=== PATIENT | male | born 1955 | race Caucasian/White ===

== ENCOUNTER → 2018-08-24 | Day surgery (SDC) | payer OTHER ==
[2018-08-23 13:40] VITALS: BMI 30.9
[~2018-08-24] MED LIST: BUPIVACAINE HCL 0.25% 125 MG/50 ML VIAL ONE; EPINEPHrine 1:1,000 1 MG/1 ML - 30ML VIAL (INJECTION) ONE; KETOROLAC TROMETHAMINE 30 MG/1 ML VIAL ONE; LACTATED RINGERS SOLUTION 1,000 ML IV SCH; LIDOCAINE HCL/PF 2% SDV 5ML VIAL ONE; MIDAZOLAM HCL 2 MG/2 ML SINGLE DOSE VIAL ONE; ONDANSETRON 4 MG/2 ML VIAL IVPUSH PRN; ONDANSETRON 4 MG/2 ML VIAL ONE; PROPOFOL 20 ML ONE; ceFAZolin SODIUM 1 GM VIAL ONE; oxyCODONE HCL 5 MG TABLET PO PRN
[2018-08-24 16:29] VITALS: TEMP 98.2
[2018-08-24 16:43] VITALS: BP 124/74; PULSE 75
--- NOTE | 2018-08-25 08:51 | OP ---
DATE OF OPERATION: 08/24/2018 PREOPERATIVE DIAGNOSIS: Right knee medial meniscal tear. POSTOPERATIVE DIAGNOSIS: Right knee medial meniscal tear. PROCEDURE: Right knee arthroscopy with partial medial meniscectomy. SURGEON: Nigel Maynard MD ANESTHESIA: Spinal. POSTOPERATIVE CONDITION: Stable. COMPLICATIONS: None. INDICATIONS: This is a pleasant 62-year-old gentleman who is suffering from medial knee pain. MRI demonstrated medial meniscal tear. Treatment options including nonoperative versus operative management were reviewed. Operative risks were reviewed in detail including bleeding, infection, neurovascular injury, need for further surgery, postoperative pain or stiffness, progression of osteoarthritis. We discussed medical risks such as heart attack, stroke, DVT, PE, and . I addressed all the patients questions and concerns. He voiced understanding and elected to proceed. DESCRIPTION OF PROCEDURE: The patient was brought to the operating room where spinal anesthesia was administered. The patient was then placed supine on the operating room table. The right lower extremity was then prepped and draped in the usual sterile fashion. A preoperative dose of antibiotics was given, and the usual time-out procedure was performed. The portal sites were then marked out and then injected subcutaneously with 0.25% Marcaine. The lateral portal was now established with the No. 11 blade. The arthroscope was passed into the knee. Examination of the patellofemoral joint demonstrated moderate partial thickness chondral loss on the patellar and trochlear surfaces. Passing the arthroscope into the notch demonstrated intact ACL and PCL. The arthroscope was now passed into the medial compartment. Here, a medial portal was established under spinal needle localization. The compartment was examined demonstrating moderate thickness chondral loss along the femoral and tibial surfaces. There was a complex tear along the body and posterior horn of the medial meniscus. Utilizing meniscal biters and a shaver, this was debrided down to a stable base. The arthroscope was passed into the lateral compartment. Here, there was only mild superficial cartilage fraying on the articular surface. Meniscus was unremarkable. It was probed and found to be stable. The arthroscope was now passed back into the patellofemoral joint. The knee was irrigated. The excess fluid was now withdrawn. The portals were sutured using 3-0 nylon. Sterile dressings were placed. The patient was transferred to the recovery room in stable condition. NIGEL MAYNARD M.D. [id number]
== END | disposition home or self-care (01) ==
LOC: FASU 08:08
PROVIDERS: ATTEND Orthopaedic Surgery Sports Medicine
PROC: 0SBC4ZZ Excision of Right Knee Joint, Percutaneous Endoscopic Approach (ICD-10-PCS; principal; 2018-08-24 11:29)
DX: S83.241A Other tear of medial meniscus, current injury, right knee, initial encounter (principal); X58.XXXA Exposure to other specified factors, initial encounter; Y93.9 Activity, unspecified; Y92.9 Unspecified place or not applicable
CPT/HCPCS: 82962

== ENCOUNTER 2018-10-31 19:32 | Inpatient (IN) | payer OTHER ==
--- NOTE | 2018-10-31 19:35 | PDOC ---
History of Present Illness - General History Source: Patient Exam Limitations: No Limitations - History of Present Illness Initial Comments: 10/31/18 20:35 The patient is a 63 year old male, with a significant PMH of diabetes, HTN, and HDL, who presents to the emergency department complaining of a left foot injury that occurred 2 days. The patient states he stepped on a tac 2 days ago that went through his sneaker and noticed some erythema and swelling at the left great toe. He reports swelling progressively worsened today, radiating to his leg accompanied with some numbness at the bottom of his foot which is normal for him. He states he is able to ambulate and bear weight on his right foot but came in for further evaluation because he is diabetic. The patient also mentions he did not take any of his medications today and tetanus shot is not up to date. The patient denies pus or discharge at the site of injury. Denies any chest pain, shortness of breath, headache and dizziness. Denies fever, chills, nausea, vomit, diarrhea and constipation. PAST MEDICAL HISTORY: no significant history PAST SURGICAL HISTORY: no significant history FAMILY HISTORY: no pertinent history SOCIAL HISTORY: Current everyday smoker (smokes 2 packs per day) but denies alcohol and recreational drug use. MEDICATIONS: reviewed ALLERGIES: Penicillin Adult ROS General: No fevers or chills, no weakness, no weight loss HEENT: No change in vision. No sore throat,. No ear pain CardioVascular: No chest pain or shortness of breath Respiratory:No cough, or wheezing. Gastrointestinal: no nausea, vomiting, diarrhea or constipation, No rectal bleeding Genitourinary: No dysuria, hematuria, or frequency Musculoskeletal: +Right foot swelling. Neurologic: No headache, vertigo, dizziness or loss of consciousness Psychiatric: nor depression Skin: No rashes or easy bruising Endocrine: no increased thirst or abnormal weight change Allergic: no skin or latex allergy All other systems reviewed and normal Adult Exam: General: Well-nourished well-developed individual, no acute distress HEENT: Throat: Normal, tonsils normal, no erythema or exudate Neck: Supple, no meningeal signs, no lymphadenopathy Eyes::Pupils equal reactive and round, extraocular motion intact Chest: Nontender to palpation Cardiac:+Tachycardic. No murmurs rubs or gallops Respiratory: Lungs clear to auscultation bilateral Abdomen: Soft, nondistended, normal bowel sounds, nontender to palpation diffusely Extremities: Warm, dry, no cyanosis, clubbing, or edema Skin: +Left foot plantar surface of the great toe there is a 1 cm superficial laceration with swelling and erythema of the great toe . Associated increase of warmth and redness of the plantar surface to the medial aspect dorsum of foot and medial aspect of the ankle and lower third of leg. Neuro: Alert and oriented x3, nonfocal exam, grossly intact. Psych: Normal mood and affect <Abeba Akhtar - Last Filed: 10/31/18 21:08> - General History Source: Patient Exam Limitations: No Limitations - History of Present Illness Initial Comments: 10/31/18 20:46 A portion of this note was documented by scribe services under my direction. I have reviewed the details of the note, within reason, and agree with the documentation with the following case summary and management plan written by me. Patient treated in the ED. Nursing notes are reviewed and incorporated into the medical decision-making. Vital signs reviewed. Assessment plan: This is a 63-year-old male who is an insulin-dependent diabetic who stepped on a foreign body that went through his shoe 2 days ago. Patient now has a cellulitis of his foot with extension to his ankle and up his leg. Patient will need admission for IV antibiotics. Workup initiated including CBC, comp, EKG, chest x-ray, foot x-ray Infectious disease consult regarding antibiotics and antibiotics were started. Patient said that his ALLERGY to penicillin his he thinks he may have had a rash as a child and is almost positive that he has had penicillins post dental work as a prophylaxis without difficulty. Is up on that history infectious disease recommended mended that he be given meropenem and clindamycin Patient will be admitted to the hospitalist service 10/31/18 21:40 <Girma Jain I - Last Filed: 10/31/18 21:41> - General Chief Complaint: Pain, Acute Stated Complaint: STEPPED ON TAC TUESDAY Time Seen by Provider: 10/31/18 19:33 Past History <Abeba Akhtar - Last Filed: 10/31/18 21:08> - Past Medical History Anemia: No Asthma: No Cancer: No Cardiac Disorders: No CVA: No COPD: No CHF: No Dementia: No Diabetes: Yes (x25 years) GI Disorders: No Disorders: No HTN: No Hypercholesterolemia: No Liver Disease: No Seizures: No Thyroid Disease: No - Surgical History Abdominal Surgery: No Appendectomy: No Cardiac Surgery: No Cholecystectomy: No Lung Surgery: No Neurologic Surgery: No Orthopedic Surgery: No - Suicide/Smoking/Psychosocial Hx Smoking History: Current every day smoker Have you smoked in the past 12 months: Yes Number of Cigarettes Smoked Daily: 40 'Breaking Loose' booklet given: 08/23/18 Hx Alcohol Use: No Drug/Substance Use Hx: No Substance Use Type: None Hx Substance Use Treatment: No <Girma Jain I - Last Filed: 10/31/18 21:41> - Past Medical History Allergies/Adverse Reactions: Allergies Allergy/AdvReac Type Severity Reaction Status Date / Time Penicillins Allergy Rash Verified 10/31/18 19:36 Home Medications: Ambulatory Orders Aspirin [Adult Aspirin Regimen] 81 mg PO DAILY 08/23/18 Insulin Glargine,Hum.rec.anlog [Lantus] 60 unit SQ BID 08/23/18 Lisinopril [Prinivil] 10 mg PO DAILY 08/23/18 Simvastatin [Zocor -] 40 mg PO DAILY 08/23/18 metFORMIN HCL [Metformin HCl ER] 1,000 mg PO BID 08/23/18 *Physical Exam - Vital Signs Last Vital Signs Temp Pulse Resp BP Pulse Ox 99 F 104 H 16 169/109 H 99 10/31/18 19:49 10/31/18 19:49 10/31/18 19:49 10/31/18 19:49 10/31/18 19:49 <Abeba Akhtar - Last Filed: 10/31/18 21:08> Moderate Sedation - Procedure Monitoring Vital Signs: Procedure Monitoring Vital Signs Temperature 99 F 10/31/18 19:49 Pulse Rate 104 H 10/31/18 19:49 Respiratory Rate 16 10/31/18 19:49 Blood Pressure 169/109 H 10/31/18 19:49 O2 Sat by Pulse Oximetry (%) 99 10/31/18 19:49 <Abeba Akhtar - Last Filed: 10/31/18 21:08> ED Treatment Course - LABORATORY CBC & Chemistry Diagram: 10/31/18 20:45 10/31/18 20:45 - ADDITIONAL ORDERS Additional order review: Laboratory Results 10/31/18 19:47 POC Glucometer 312 10/31/18 19:47 POC Glucometer 312 - Medications Given in the ED: ED Medications Discontinued Medications Generic Name Dose Route Start Last Admin Trade Name Catrachito PRN Reason Stop Dose Admin Diphtheria/Tetanus/Acell Pertussis 0.5 ml 10/31/18 19:49 10/31/18 19:58 Boostrix - IM 10/31/18 19:50 0.5 ml ONCE ONE Administration <Abeba Akhtar - Last Filed: 10/31/18 21:08> - LABORATORY CBC & Chemistry Diagram: 10/31/18 20:45 10/31/18 20:45 <Girma Jain I - Last Filed: 10/31/18 21:41> *DC/Admit/Observation/Transfer - Attestations Scribe Attestion: 10/31/18 20:42 Documentation prepared by Abeba Akhtar, acting as medical management specialist for Girma Jain MD. <Abeba Akhtar - Last Filed: 10/31/18 21:08> - Discharge Dispostion Decision to Admit order: Yes <Girma Jain I - Last Filed: 10/31/18 21:41> Diagnosis at time of Disposition: Cellulitis of foot, Hyperglycemia - Discharge Dispostion Condition at time of disposition: Stable
[2018-10-31] MEDS ORDERED: DIPHTH,PERTUSS(ACELL),TET 0.5 ML DISP.SYRIN IM ONE ×2 (19:49→19:55)
[2018-10-31] MEDS ORDERED: INSULIN REGULAR HUMAN 100 UNITS/ML *VIAL IVPUSH ONE (19:59)
[2018-10-31 20:04] VITALS: BMI 31.2
[2018-10-31] MEDS ORDERED: INSULIN REGULAR HUMAN 100 UNITS/ML *VIAL ONE (20:05)
[2018-10-31] MEDS ORDERED: AZTREONAM 2 GM in DEXTROSE 5%-WATER 100 ML IVPB ONE (20:14)
[2018-10-31] MEDS ORDERED: CLINDAMYCIN IVPB 300 MG in DEXTROSE 5%-WATER - 48 ML IVPB ONE (20:42)
[2018-10-31] MEDS ORDERED: MEROPENEM 1 GM in DEXTROSE 5%-WATER 100 ML IVPB ONE (20:44)
[2018-10-31] MEDS ORDERED: CLINDAMYCIN PHOSPHATE 300 MG/2 ML VIAL ONE (20:53)
[2018-10-31 20:59] LABS: PH,URINE 6.5 (4.5-8); URINE APPEARANCE Clear; URINE BILIRUBIN Negative (NEGATIVE); URINE COLOR Yellow; URINE GLUCOSE (UA) 2+ (NEGATIVE); URINE KETONE Trace (NEGATIVE); URINE LEUK ESTERASE Negative (NEGATIVE); URINE NITRITE Negative (NEGATIVE); URINE PROTEIN 2+ (NEGATIVE); URINE UROBILINOGEN 0.2 (0.2-1.0)
[2018-10-31 21:02] LABS: MCH 29.3 pg (25.7-33.7); MCHC 32.6 g/dl (32.0-35.9); MEAN CELL VOLUME 89.7 fl (80-96); MEAN PLT VOLUME 8.6 fl (7.5-11.1); PLATELET COUNT 168 K/MM3 (134-434); RDW 12.4 % (11.9-15.9); WHITE BLOOD COUNT 13.8 K/mm3 (4.0-10.8)
[2018-10-31 21:16] LABS: ALBUMIN 3.9 g/dl (3.4-5.0); ALK PHOS 93 U/L (45-117); ANION GAP 7 MMOL/L (8-16); BILIRUBIN,TOTAL 0.8 mg/dl (0.2-1); BLOOD UREA NITROGEN 22 mg/dl (7-18); CALCIUM 8.7 mg/dl (8.5-10); CHLORIDE 94 mmol/L (98-107); CO2 26 mmol/L (21-32); CREATININE 1.2 mg/dl (0.55-1.3); POTASSIUM 4.5 mmol/L (3.5-5.1); SGOT/AST 23 U/L (15-37); SGPT/ALT 20 U/L (13-61); SODIUM 127 mmol/L (136-145); TOT PROT 6.4 g/dl (6.4-8.2)
[2018-10-31 21:17] LABS: GLUCOSE,RANDOM 315 mg/dl (74-106)
[2018-10-31 21:20] LABS: INR 1.32 (0.82-1.09); PROTHROMBIN TIME (PATIENT) 14.7 SEC (10.2-13.0)
[2018-10-31 21:36] LABS: EPI CELLS 1+ /HPF; URINE WBC 0-2 (0-2)
[2018-10-31 21:37] LABS: URINE BACTERIA 1+ /hpf (NEGATIVE)
--- NOTE | 2018-10-31 21:58 | HP ---
CHIEF COMPLAINT: left foot pain PCP: HISTORY OF PRESENT ILLNESS: 63yo man, long time smoker and 25year diabetic reported stepping on nail this past Tuesday with penetration of nail into left toe through his sneaker. Pt did not feel it at first and later felt pain, erythema, and swelling in left foot so sought medical advice. He denied any significant fever or chills. ER course was notable for: (1) meropenem (2) clindamycin (3) left foot xray Recent Travel: Traveled to [place] 1 year ago PAST MEDICAL HISTORY: DM -25 years, HTN, Dyslipidemia PAST SURGICAL HISTORY: Right knee meniscus surgery 8 weeks ago Social History: Smoking:yes past, 40 years, current 2 pack /day smoker Alcohol:no Drugs: no Family History: no Allergies Penicillins Allergy (Verified 10/31/18 19:36) Rash HOME MEDICATIONS: Home Medications Medication Instructions Recorded Aspirin [Adult Aspirin Regimen] 81 mg PO DAILY 08/23/18 Insulin Glargine,Hum.rec.anlog 60 unit SQ BID 08/23/18 [Lantus] Lisinopril [Prinivil] 10 mg PO DAILY 08/23/18 Simvastatin [Zocor -] 40 mg PO DAILY 08/23/18 metFORMIN HCL [Metformin HCl ER] 1,000 mg PO BID 08/23/18 REVIEW OF SYSTEMS CONSTITUTIONAL: Absent: fever, chills, diaphoresis, generalized weakness, malaise, loss of appetite, weight change HEENT: Absent: rhinorrhea, nasal congestion, throat pain, throat swelling, difficulty swallowing, mouth swelling, ear pain, eye pain, visual changes CARDIOVASCULAR: Absent: chest pain, syncope, palpitations, irregular heart rate, lightheadedness , peripheral edema RESPIRATORY: Absent: cough, shortness of breath, dyspnea with exertion, orthopnea, wheezing, stridor, hemoptysis GASTROINTESTINAL: Absent: abdominal pain, abdominal distension, nausea, vomiting, diarrhea, constipation, melena, hematochezia GENITOURINARY: Absent: dysuria, , urgency, hesitancy, hematuria, flank pain, genital pain present- frequency MUSCULOSKELETAL: Absent: myalgia, arthralgia, joint swelling, back pain, neck pain present- left foot pain SKIN: Absent: rash, itching, pallor HEMATOLOGIC/IMMUNOLOGIC: Absent: easy bleeding, easy bruising, lymphadenopathy, frequent infections ENDOCRINE: Absent: unexplained weight gain, unexplained weight loss, heat intolerance, cold intolerance NEUROLOGIC: Absent: headache, focal weakness or paresthesias, dizziness, unsteady gait, seizure, mental status changes, bladder or bowel incontinence PSYCHIATRIC: Absent: anxiety, depression, suicidal or homicidal ideation, hallucinations. PHYSICAL EXAMINATION Vital Signs - 24 hr 10/31/18 10/31/18 19:49 21:47 Temperature 99 F 97.8 F Pulse Rate 104 H Pulse Rate [ 100 H Left] Respiratory 16 18 Rate Blood Pressure 169/109 H Blood Pressure 128/82 [Right] O2 Sat by Pulse 99 95 Oximetry (%) GENERAL: Awake, alert, and fully oriented, in no acute distress. HEAD: Normal with no signs of trauma. EYES: Pupils equal, round and reactive to light, extraocular movements intact, sclera anicteric, conjunctiva clear. No lid lag. EARS, NOSE, THROAT: Ears normal, nares patent, oropharynx clear without exudates. Moist mucous membranes. NECK: Normal range of motion, supple without lymphadenopathy, JVD, or masses. LUNGS: Breath sounds equal, clear to auscultation bilaterally. No wheezes, and no crackles. No accessory muscle use. HEART: Regular rate and rhythm, normal S1 and S2 without murmur, rub or gallop. ABDOMEN: Soft, obese, nontender, not distended, normoactive bowel sounds, no guarding, no rebound, no masses. MUSCULOSKELETAL: Normal range of motion at all joints. No bony deformities or tenderness. No CVA tenderness. UPPER EXTREMITIES: 2+ pulses, warm, well-perfused. No cyanosis. No clubbing. No peripheral edema. LOWER EXTREMITIES: 2+ pulses, warm, well-perfused. left great toe small ulcer, surrounding erythema up to ankle, more so medially, tender to palpation NEUROLOGICAL: Cranial nerves II-XII intact. Normal speech. Normal gait. PSYCHIATRIC: Cooperative. Good eye contact. Appropriate mood and affect. SKIN: Warm, dry, normal turgor, no rashes or lesions noted, normal capillary refill. Laboratory Results - last 24 hr 10/31/18 10/31/18 10/31/18 19:47 20:45 20:45 WBC 13.8 H RBC 4.80 Hgb 14.0 Hct 43.0 MCV 89.7 MCH 29.3 MCHC 32.6 RDW 12.4 Plt Count 168 MPV 8.6 Absolute Neuts (auto) 11.2 Neutrophils % No Result Required. Lymphocytes % No Result Required. PT with INR 14.7 H INR 1.32 H Sodium Potassium Chloride Carbon Dioxide Anion Gap BUN Creatinine Creat Clearance w eGFR POC Glucometer 312 Random Glucose Calcium Total Bilirubin AST ALT Alkaline Phosphatase Creatine Kinase Creatine Kinase Index CK-MB (CK-2) Troponin I Total Protein Albumin Urine Color Urine Appearance Urine pH Ur Specific Pryor Urine Protein Urine Glucose (UA) Urine Ketones Urine Blood Urine Nitrite Urine Bilirubin Urine Urobilinogen Ur Leukocyte Esterase Urine RBC Urine WBC Ur Epithelial Cells Urine Bacteria 10/31/18 10/31/18 10/31/18 20:45 20:45 20:45 WBC RBC Hgb Hct MCV MCH MCHC RDW Plt Count MPV Absolute Neuts (auto) Neutrophils % Lymphocytes % PT with INR INR Sodium 127 L Potassium 4.5 Chloride 94 L Carbon Dioxide 26 Anion Gap 7 L BUN 22 H Creatinine 1.2 Creat Clearance w eGFR > 60 POC Glucometer Random Glucose 315 H* Calcium 8.7 Total Bilirubin 0.8 AST 23 ALT 20 Alkaline Phosphatase 93 Creatine Kinase 261 Creatine Kinase Index 2.3 CK-MB (CK-2) 6.1 H Troponin I < 0.03 Total Protein 6.4 Albumin 3.9 Urine Color Urine Appearance Urine pH Ur Specific Pryor Urine Protein Urine Glucose (UA) Urine Ketones Urine Blood Urine Nitrite Urine Bilirubin Urine Urobilinogen Ur Leukocyte Esterase Urine RBC Urine WBC Ur Epithelial Cells Urine Bacteria 10/31/18 20:45 WBC RBC Hgb Hct MCV MCH MCHC RDW Plt Count MPV Absolute Neuts (auto) Neutrophils % Lymphocytes % PT with INR INR Sodium Potassium Chloride Carbon Dioxide Anion Gap BUN Creatinine Creat Clearance w eGFR POC Glucometer Random Glucose Calcium Total Bilirubin AST ALT Alkaline Phosphatase Creatine Kinase Creatine Kinase Index CK-MB (CK-2) Troponin I Total Protein Albumin Urine Color Yellow Urine Appearance Clear Urine pH 6.5 Ur Specific Pryor 1.020 Urine Protein 2+ H Urine Glucose (UA) 2+ H Urine Ketones Trace Urine Blood 1+ H Urine Nitrite Negative Urine Bilirubin Negative Urine Urobilinogen 0.2 Ur Leukocyte Esterase Negative Urine RBC 5-10 Urine WBC 0-2 Ur Epithelial Cells 1+ Urine Bacteria 1+ imaging studies reviewed ekg showed q waves in inferior leads ASSESSMENT/PLAN: #Sepsis secondary to left foot cellulitis- must rule out osteomyelitis in left great toe -s/p clindamycin and meropenem as per id -ID consult -podiatry consult -esr -left foot mri ordered #Uncontrolled DM -novolog sliding scale -insulin glargine 60 units sc bid -asa -lipitor 20mg daily -diabetic diet -a1c -iv fluid hydration -retina check as an outpatient #HTN -uncontrolled -lisinopril 10mg daily- titrate if BP uncontrolled #tobacco abuse -counseled on smoking cessation -nicotine patch 21mg while in hospital #Abnormal ekg - q waves in inferior leads -echo to check for signs of ischemia dvt ppx -heparin sc Visit type - Emergency Visit Emergency Visit: Yes ED Registration Date: 10/31/18 Care time: The patient presented to the Emergency Department on the above date and was hospitalized for further evaluation of their emergent condition. - New Patient This patient is new to me today: Yes Date on this admission: 10/31/18 - Critical Care Critical Care patient: No
[2018-10-31 22:17] LABS: PLATELET ESTIMATE ADEQUATE
[2018-11-01] MEDS ORDERED: INSULIN (NOVOLOG) ASPART 100 UNITS/ML 10ML VIAL ONE (00:03)
[2018-11-01] MEDS: INSULIN (LEVEMIR) 100 UNITS/ML UNITS SQ SCH ×3 (00:20→21:12)
[2018-11-01] MEDS: INSULIN SLIDING SCALE (NOVOLOG) 1 VIAL SQ SCH ×5 (00:21→21:13)
[2018-11-01] MEDS: HEPARIN NA (PORCINE) 5,000 UNITS/ML 1ML VIAL SQ SCH ×4 (00:21→21:13)
[2018-11-01] MEDS: SODIUM CHLORIDE 1,000 ML IV SCH (00:22)
[2018-11-01] MEDS ORDERED: MEROPENEM 1 GM in DEXTROSE 5%-WATER 100 ML IVPB ONE (04:00)
[2018-11-01 07:49] LABS: HEMOGLOBIN 13.6 GM/dl (11.7-16.9); MCH 29.6 pg (25.7-33.7); MCHC 33.2 g/dl (32.0-35.9); MEAN CELL VOLUME 89.3 fl (80-96); MEAN PLT VOLUME 8.8 fl (7.5-11.1); PLATELET COUNT 162 K/MM3 (134-434); RDW 12.4 % (11.9-15.9); WHITE BLOOD COUNT 12.5 K/mm3 (4.0-10.8)
[2018-11-01 07:57] LABS: ALBUMIN 3.4 g/dl (3.4-5.0); ALK PHOS 76 U/L (45-117); ANION GAP 9 MMOL/L (8-16); BILIRUBIN,TOTAL 0.8 mg/dl (0.2-1); BLOOD UREA NITROGEN 18 mg/dl (7-18); CALCIUM 8.5 mg/dl (8.5-10); CHLORIDE 97 mmol/L (98-107); CO2 25 mmol/L (21-32); GLUCOSE,RANDOM 84 mg/dl (74-106); POTASSIUM 3.7 mmol/L (3.5-5.1); SGOT/AST 18 U/L (15-37); SGPT/ALT 17 U/L (13-61); SODIUM 131 mmol/L (136-145)
[2018-11-01] MEDS: LISINOPRIL 10 MG TABLET (FP) PO SCH (09:17)
[2018-11-01] MEDS: ASPIRIN COATED 81 MG TABLET.EC PO SCH (09:17)
[2018-11-01] MEDS: ATORVASTATIN CA 20 MG TABLET (FP) PO SCH (09:17)
--- NOTE | 2018-11-01 09:41 | EKG ---
Test Reason : Blood Pressure : / mmHG Vent. Rate : 100 BPM Atrial Rate : 100 BPM P-R Int : 182 ms QRS Dur : 140 ms QT Int : 380 ms P-R-T Axes : 066 268 034 degrees QTc Int : 490 ms NORMAL SINUS RHYTHM RIGHT BUNDLE BRANCH BLOCK ABNORMAL ECG NO PREVIOUS ECGS AVAILABLE Confirmed by LUIS ANTONIO PRETTY, DERIK ([id number]) on 11/01/2018 9:41:14 AM Referred By: DR STOUT Confirmed By:DERIK SALMON MD
[2018-11-01] MEDS ORDERED: LISINOPRIL 5 MG TABLET (FP) PO SCH (10:00)
[2018-11-01] MEDS: ACETAMINOPHEN 500 MG TABLET (FP) PO PRN (11:55)
[2018-11-01] MEDS: NICOTINE 21 MG/24 HOURS TOPICAL PATCH TD SCH (12:05)
--- NOTE | 2018-11-01 12:32 | CON.ID ---
Consult Consult Specialty:: infectious diseases Referred by:: hospitalist Reason for Consultation:: nail injury to the foot - History of Present Illness Chief Complaint: nail injury and bleeding from the foot History of Present Illness: 63yo man, long time smoker and 25year diabetic reported stepping on nail this past Tuesday with penetration of nail into left toe through his sneaker. Pt did not feel it at first and later felt pain, erythema, and swelling in left foot so sought medical advice. He denied any significant fever or chills. according to the patient he mentions that he came to know of the injury when he saw blood in the sneakers other olivarez he ahd no sensation according to the way patient talks he looks like he is non compliant currently he says he is feeling better and wants to go home - History Source History Provided By: Patient Limitations to Obtaining History: No Limitations - Alcohol/Substance Use Hx Alcohol Use: No - Smoking History Smoking history: Current every day smoker Have you smoked in the past 12 months: Yes Aproximately how many cigarettes per day: 40 Home Medications - Allergies Allergies/Adverse Reactions: Allergies Allergy/AdvReac Type Severity Reaction Status Date / Time Penicillins Allergy Rash Verified 10/31/18 19:36 - Home Medications Home Medications: Ambulatory Orders Aspirin [Adult Aspirin Regimen] 81 mg PO DAILY 08/23/18 Insulin Glargine,Hum.rec.anlog [Lantus] 60 unit SQ BID 08/23/18 Lisinopril [Prinivil] 10 mg PO DAILY 08/23/18 Simvastatin [Zocor -] 40 mg PO DAILY 08/23/18 metFORMIN HCL [Metformin HCl ER] 1,000 mg PO BID 08/23/18 Review of Systems - Review of Systems Constitutional: reports: No Symptoms Eyes: reports: No Symptoms HENT: reports: No Symptoms Neck: reports: No Symptoms Cardiovascular: reports: No Symptoms Respiratory: reports: No Symptoms Gastrointestinal: reports: No Symptoms Genitourinary: reports: No Symptoms Musculoskeletal: reports: Other Integumentary: reports: Wound Neurological: reports: No Symptoms Endocrine: reports: No Symptoms Hematology/Lymphatic: reports: No Symptoms Psychiatric: reports: No Symptoms Physical Exam Vital Signs: Vital Signs Temperature 98.4 F 11/01/18 06:45 Pulse Rate 110 H 11/01/18 06:45 Respiratory Rate 18 11/01/18 06:45 Blood Pressure 111/65 11/01/18 06:45 O2 Sat by Pulse Oximetry (%) 95 10/31/18 21:47 Constitutional: Yes: Well Nourished, No Distress, Calm Eyes: Yes: Conjunctiva Clear HENT: Yes: Atraumatic, Normocephalic Neck: Yes: Supple, Trachea Midline Cardiovascular: Yes: Regular Rate and Rhythm Respiratory: Yes: Regular, CTA Bilaterally Gastrointestinal: Yes: Normal Bowel Sounds, Soft Musculoskeletal: Yes: Other Extremities: Yes: Erythema (of the foot), Other (swelling of the foot) Integumentary: Yes: Erythema, Other (wound) Wound/Incision: Yes: Clean/Dry, Open to air Neurological: Yes: Alert, Oriented Psychiatric: Yes: Alert, Oriented Labs: CBC, BMP 11/01/18 07:00 11/01/18 07:00 Imaging - Results Chest X-ray: Report Reviewed, Image Reviewed X-ray: Report Reviewed, Image Reviewed Assessment/Plan this non compliant patient who came to the hospital because of a nail penetration of the foot who is diabetic currently looks stable,no bleeding noted nail injury bleeding wound swelling of the foot cellulits of the foot plan mri of the leg await for all cx reports diabetes control stopping smoking
--- NOTE | 2018-11-01 13:38 | PN ---
Physical Exam: SUBJECTIVE: Patient seen and examined. Left foot is quite painful. Stepped on a large furniture tack. Did not feel it. Only discovered when he took his sneaker off and it was full of blood. Received tetanus in ED. Does not follow any type of diabetic diet. OBJECTIVE: Vital Signs Period Temp Pulse Resp BP Sys/Greene Pulse Ox Last 24 Hr 97.8 F-99 F 72-110 16-18 111-169/65-109 95-99 GENERAL: The patient is awake, alert, and fully oriented, in no acute distress. LUNGS: Breath sounds equal, clear to auscultation bilaterally, no wheezes, no crackles, no accessory muscle use. HEART: Regular rate and rhythm, S1, S2 without murmur, rub or gallop. ABDOMEN: Soft, nontender, nondistended, normoactive bowel sounds, no guarding, no rebound, no hepatosplenomegaly, no masses. LEFT LOWER EXTREMITY: entire foot is erythematous, warm, swollen; swelling extends to pre-tibial area; dried puncture wound on bottom of hallux NEUROLOGICAL: Cranial nerves II through XII grossly intact. Normal speech, gait not observed. Laboratory Results - last 24 hr 10/31/18 10/31/18 10/31/18 19:47 20:45 20:45 WBC 13.8 H RBC 4.80 Hgb 14.0 Hct 43.0 MCV 89.7 MCH 29.3 MCHC 32.6 RDW 12.4 Plt Count 168 MPV 8.6 Absolute Neuts (auto) 11.2 Neutrophils % No Result Required. Neutrophils % (Manual) 83.0 H Band Neutrophils % 1.0 Lymphocytes % No Result Required. Lymphocytes % (Manual) 11.0 Monocytes % (Manual) 5 Platelet Estimate Adequate ESR PT with INR 14.7 H INR 1.32 H Sodium Potassium Chloride Carbon Dioxide Anion Gap BUN Creatinine Creat Clearance w eGFR POC Glucometer 312 Random Glucose Lactic Acid Calcium Total Bilirubin AST ALT Alkaline Phosphatase Creatine Kinase Creatine Kinase Index CK-MB (CK-2) Troponin I Total Protein Albumin Urine Color Urine Appearance Urine pH Ur Specific [place] Urine Protein Urine Glucose (UA) Urine Ketones Urine Blood Urine Nitrite Urine Bilirubin Urine Urobilinogen Ur Leukocyte Esterase Urine RBC Urine WBC Ur Epithelial Cells Urine Bacteria 10/31/18 10/31/18 10/31/18 20:45 20:45 20:45 WBC RBC Hgb Hct MCV MCH MCHC RDW Plt Count MPV Absolute Neuts (auto) Neutrophils % Neutrophils % (Manual) Band Neutrophils % Lymphocytes % Lymphocytes % (Manual) Monocytes % (Manual) Platelet Estimate ESR PT with INR INR Sodium 127 L Potassium 4.5 Chloride 94 L Carbon Dioxide 26 Anion Gap 7 L BUN 22 H Creatinine 1.2 Creat Clearance w eGFR > 60 POC Glucometer Random Glucose 315 H* Lactic Acid Calcium 8.7 Total Bilirubin 0.8 AST 23 ALT 20 Alkaline Phosphatase 93 Creatine Kinase 261 Creatine Kinase Index 2.3 CK-MB (CK-2) 6.1 H Troponin I < 0.03 Total Protein 6.4 Albumin 3.9 Urine Color Urine Appearance Urine pH Ur Specific [place] Urine Protein Urine Glucose (UA) Urine Ketones Urine Blood Urine Nitrite Urine Bilirubin Urine Urobilinogen Ur Leukocyte Esterase Urine RBC Urine WBC Ur Epithelial Cells Urine Bacteria 10/31/18 10/31/18 11/01/18 20:45 20:45 00:10 WBC RBC Hgb Hct MCV MCH MCHC RDW Plt Count MPV Absolute Neuts (auto) Neutrophils % Neutrophils % (Manual) Band Neutrophils % Lymphocytes % Lymphocytes % (Manual) Monocytes % (Manual) Platelet Estimate ESR PT with INR INR Sodium Potassium Chloride Carbon Dioxide Anion Gap BUN Creatinine Creat Clearance w eGFR POC Glucometer 170 Random Glucose Lactic Acid 1.0 Calcium Total Bilirubin AST ALT Alkaline Phosphatase Creatine Kinase Creatine Kinase Index CK-MB (CK-2) Troponin I Total Protein Albumin Urine Color Yellow Urine Appearance Clear Urine pH 6.5 Ur Specific [place] 1.020 Urine Protein 2+ H Urine Glucose (UA) 2+ H Urine Ketones Trace Urine Blood 1+ H Urine Nitrite Negative Urine Bilirubin Negative Urine Urobilinogen 0.2 Ur Leukocyte Esterase Negative Urine RBC 5-10 Urine WBC 0-2 Ur Epithelial Cells 1+ Urine Bacteria 1+ 11/01/18 11/01/18 11/01/18 06:30 07:00 07:00 WBC 12.5 H RBC 4.60 Hgb 13.6 Hct 41.0 MCV 89.3 MCH 29.6 MCHC 33.2 RDW 12.4 Plt Count 162 MPV 8.8 Absolute Neuts (auto) Neutrophils % Neutrophils % (Manual) Band Neutrophils % Lymphocytes % Lymphocytes % (Manual) Monocytes % (Manual) Platelet Estimate ESR PT with INR INR Sodium 131 L Potassium 3.7 Chloride 97 L Carbon Dioxide 25 Anion Gap 9 BUN 18 Creatinine 1.0 Creat Clearance w eGFR > 60 POC Glucometer 66 Random Glucose 84 Lactic Acid Calcium 8.5 Total Bilirubin 0.8 AST 18 ALT 17 Alkaline Phosphatase 76 D Creatine Kinase Creatine Kinase Index CK-MB (CK-2) Troponin I Total Protein 6.0 L Albumin 3.4 Urine Color Urine Appearance Urine pH Ur Specific [place] Urine Protein Urine Glucose (UA) Urine Ketones Urine Blood Urine Nitrite Urine Bilirubin Urine Urobilinogen Ur Leukocyte Esterase Urine RBC Urine WBC Ur Epithelial Cells Urine Bacteria 11/01/18 11/01/18 11/01/18 07:00 07:00 11:35 WBC RBC Hgb Hct MCV MCH MCHC RDW Plt Count MPV Absolute Neuts (auto) Neutrophils % Neutrophils % (Manual) Band Neutrophils % Lymphocytes % Lymphocytes % (Manual) Monocytes % (Manual) Platelet Estimate ESR 37 H PT with INR INR Sodium Potassium Chloride Carbon Dioxide Anion Gap BUN Creatinine Creat Clearance w eGFR POC Glucometer 117 168 Random Glucose Lactic Acid Calcium Total Bilirubin AST ALT Alkaline Phosphatase Creatine Kinase Creatine Kinase Index CK-MB (CK-2) Troponin I Total Protein Albumin Urine Color Urine Appearance Urine pH Ur Specific [place] Urine Protein Urine Glucose (UA) Urine Ketones Urine Blood Urine Nitrite Urine Bilirubin Urine Urobilinogen Ur Leukocyte Esterase Urine RBC Urine WBC Ur Epithelial Cells Urine Bacteria Active Medications Generic Name Dose Route Start Last Admin Trade Name Gerq PRN Reason Stop Dose Admin Acetaminophen 500 mg 10/31/18 22:57 11/01/18 11:55 Tylenol - PO 500 mg Q6H PRN Administration PAIN Aspirin 81 mg 11/01/18 10:00 11/01/18 09:17 Ecotrin - PO 81 mg DAILY SARAH Administration Atorvastatin Calcium 20 mg 11/01/18 10:00 11/01/18 09:17 Lipitor - PO 20 mg DAILY SARAH Administration Heparin Sodium (Porcine) 5,000 unit 10/31/18 22:00 11/01/18 06:47 Heparin - SQ 5,000 unit TID SARAH Administration Sodium Chloride 1,000 mls @ 75 mls/hr 10/31/18 23:00 11/01/18 00:22 Normal Saline - IV 75 mls/hr ASDIR SARAH Administration Insulin Aspart 1 vial 10/31/18 22:00 11/01/18 11:55 Novolog Vial Sliding Scale - SQ 2 unit ACHS SARAH Administration Protocol Insulin Detemir 60 units 10/31/18 22:00 11/01/18 08:24 Levemir Vial SQ Not Given BID@0700,2200 [facility] Lisinopril 10 mg 11/01/18 10:00 11/01/18 09:17 Prinivil PO 10 mg DAILY SARAH Administration Nicotine 21 mg 11/01/18 10:00 Nicoderm Patch - TD DAILY SARAH ASSESSMENT/PLAN 63 year-old male with a PMH significant for HTN, HLD, and IDDM admitted for left foot cellulitis. Sepsis secondary to left foot cellulitis --WBC 13.8k, p104, cellulitis present on admission --meropenem (day #1), clindamycin PO (day #1) --MRI done to r/o osteo, pending dictation --Echo done, no sign of vegetation Hyponatremia --corrected Pq=170 --IV fluids IDDM --HgbA1C 11.7 --Levemir 60U BID --Novolog sliding scale coverage Hypertension --BP stable --continue lisinopril Hyperlipidemia --continue Lipitor FEN Fluids: NS@75mL/hr Electrolytes: replete as indicated Nutrition: diabetic DVT prophylaxis: subq heparin Dispo: continues to require inpatient care. Full code. Visit type - Emergency Visit Emergency Visit: Yes ED Registration Date: 10/31/18 Care time: The patient presented to the Emergency Department on the above date and was hospitalized for further evaluation of their emergent condition. - New Patient This patient is new to me today: Yes Date on this admission: 11/01/18 - Critical Care Critical Care patient: No
[2018-11-01] MEDS: MEROPENEM 1 GM in DEXTROSE 5%-WATER 100 ML IVPB SCH ×2 (15:30→21:13)
--- NOTE | 2018-11-01 15:57 | ECHO ---
Version: 1 Name: RUSSEL RAMÍREZ Exam: Adult Echocardiogram Study Date: 11/01/2018, 2:11 PM Age: 63 Years MMode/2D Measurements & Calculations IVSd: 1.20 cm LVIDs: 2.8 cm LVIDd: 4.6 cm LVPWd: 1.32 cm Ao root diam: 3.6 cm LA dimension: 3.1 cm Doppler Measurements & Calculations MV E max shaka: 98.1 cm/sec MV A max shaka: 102.4 cm/sec MV E/A: 0.96 TR max shaka: 179.3 cm/sec TR max P.9 mmHg Left Ventricle The left ventricular size, thickness and function are normal. The left ventricular ejection fraction is normal. E/A reversal consistent with but not diagnostic of poor LV compliance. Septal motion is cons istent with conduction abnormality. Right Ventricle The right ventricle is normal in size and function. Atria Normal left and right atrial size and function. Mitral Valve The mitral valve is normal in structure and function. There is no mitral valve stenosis. There is tr nelsy mitral regurgitation. Tricuspid Valve The tricuspid valve is normal in structure and function. There is no tricuspid stenosis. Right ventr icular systolic pressure is normal. There is trace tricuspid regurgitation. Aortic Valve The aortic valve is normal in structure and function. No hemodynamically significant valvular aortic stenosis. No aortic regurgitation is present. Pulmonic Valve The pulmonic valve is not well visualized. Great Vessels The aortic root is normal size. Pericardium/Pleura There is no pericardial effusion. Summary Statements The left ventricular size, thickness and function are normal The left ventricular ejection fraction is normal. Septal motion is consistent with conduction abnormality. There is trace tricuspid regurgitation. Right ventricular systolic pressure is normal. E/A reversal consistent with but not diagnostic of poor LV compliance MD Tomas Santamaria 11/01/2018, 3:56 PM Ordering Physician: Lyle English Performed By: Susu Moreno
[2018-11-01] MEDS: CLINDAMYCIN HCL 150 MG CAPSULE (FP) PO SCH ×2 (17:17)
[2018-11-01] MEDS ORDERED: POLYMYXIN B SULFATE/TMP 10 ML OPHTHALMIC SOLUTION OS SCH (18:30)
[2018-11-01] MEDS ORDERED: PT OWN MED DRAWER 7, Y5N ONE (21:08)
[2018-11-01] MEDS: MELATONIN 1 MG TABLET PO SCH (21:13)
[2018-11-02] MEDS: CLINDAMYCIN HCL 150 MG CAPSULE (FP) PO SCH ×4 (00:17→17:34)
[2018-11-02] MEDS: SODIUM CHLORIDE 1,000 ML IV SCH (00:21)
[2018-11-02] MEDS: INSULIN SLIDING SCALE (NOVOLOG) 1 VIAL SQ SCH ×3 (06:39→17:34)
[2018-11-02] MEDS ORDERED: PT OWN MED DRAWER 7, Y5N ONE ×3 (06:41→20:56)
[2018-11-02] MEDS: HEPARIN NA (PORCINE) 5,000 UNITS/ML 1ML VIAL SQ SCH ×3 (06:43→21:21)
[2018-11-02] MEDS: MEROPENEM 1 GM in DEXTROSE 5%-WATER 100 ML IVPB SCH ×3 (06:46→21:20)
[2018-11-02 07:31] LABS: BASO % 0.2 % (0-2.0); EOS % 0.5 % (0-4.5); HEMATOCRIT 39.2 % (35.4-49); HEMOGLOBIN 13.2 GM/dl (11.7-16.9); LYMPH % 14.3 % (8-40); MCH 30.4 pg (25.7-33.7); MCHC 33.6 g/dl (32.0-35.9); MEAN CELL VOLUME 90.5 fl (80-96); MEAN PLT VOLUME 8.5 fl (7.5-11.1); PLATELET COUNT 152 K/MM3 (134-434); RBC 4.34 M/mm3 (4.00-5.60); RDW 12.3 % (11.9-15.9); WHITE BLOOD COUNT 11.5 K/mm3 (4.0-10.8)
[2018-11-02 08:03] LABS: ALK PHOS 72 U/L (45-117); ANION GAP 8 MMOL/L (8-16); BILIRUBIN,TOTAL 0.9 mg/dl (0.2-1); BLOOD UREA NITROGEN 17 mg/dl (7-18); CALCIUM 8.2 mg/dl (8.5-10); CHLORIDE 99 mmol/L (98-107); CO2 26 mmol/L (21-32); CREATININE 0.9 mg/dl (0.55-1.3); GLUCOSE,RANDOM 73 mg/dl (74-106); MAGNESIUM 1.8 mg/dL (1.8-2.4); POTASSIUM 3.9 mmol/L (3.5-5.1); SGOT/AST 15 U/L (15-37); SGPT/ALT 15 U/L (13-61); SODIUM 133 mmol/L (136-145); TOT PROT 5.6 g/dl (6.4-8.2)
[2018-11-02] MEDS: INSULIN (LEVEMIR) 100 UNITS/ML UNITS SQ SCH ×2 (08:37→22:22)
[2018-11-02] MEDS: ATORVASTATIN CA 20 MG TABLET (FP) PO SCH (09:34)
[2018-11-02] MEDS: LISINOPRIL 10 MG TABLET (FP) PO SCH (09:34)
[2018-11-02] MEDS: NICOTINE 21 MG/24 HOURS TOPICAL PATCH TD SCH (09:34)
[2018-11-02] MEDS: ASPIRIN COATED 81 MG TABLET.EC PO SCH (09:34)
--- NOTE | 2018-11-02 10:23 | PN ---
Progress Note, Physician History of Present Illness: patients toe is looking worse wound looks worse than yesterday swelling is also worse no drainage noted yet--might form an abscess mri result awaited - Current Medication List Current Medications: Active Medications Acetaminophen (Tylenol -) 500 mg PO Q6H PRN PRN Reason: PAIN Last Admin: 11/01/18 11:55 Dose: 500 mg Aspirin (Ecotrin -) 81 mg PO DAILY [facility] Last Admin: 11/02/18 09:34 Dose: 81 mg Atorvastatin Calcium (Lipitor -) 20 mg PO DAILY [facility] Last Admin: 11/02/18 09:34 Dose: 20 mg Clindamycin HCl (Cleocin -) 300 mg PO Q6HPO [facility] Last Admin: 11/02/18 06:45 Dose: 300 mg Heparin Sodium (Porcine) (Heparin -) 5,000 unit SQ TID [facility] Last Admin: 11/02/18 06:43 Dose: 5,000 unit Meropenem 1 gm/ Dextrose 100 mls @ 200 mls/hr IVPB Q8H [facility] Last Admin: 11/02/18 06:46 Dose: 200 mls/hr Insulin Aspart (Novolog Vial Sliding Scale -) 1 vial SQ [facility]; Protocol Last Admin: 11/02/18 06:39 Dose: Not Given Insulin Detemir (Levemir Vial) 60 units SQ BID@0700,2200 [facility] Last Admin: 11/02/18 08:37 Dose: 60 units Lisinopril (Prinivil) 10 mg PO DAILY [facility] Last Admin: 11/02/18 09:34 Dose: 10 mg Melatonin (Melatonin) 3 mg PO HS [facility] Last Admin: 11/01/18 21:13 Dose: 3 mg Nicotine (Nicoderm Patch -) 21 mg TD DAILY [facility] Last Admin: 11/02/18 09:34 Dose: 21 mg - Objective Vital Signs: Vital Signs Temperature 98.2 F 11/02/18 08:50 Pulse Rate 84 11/02/18 08:50 Respiratory Rate 18 11/02/18 08:50 Blood Pressure 140/79 11/02/18 08:50 O2 Sat by Pulse Oximetry (%) 95 11/02/18 08:48 Constitutional: Yes: No Distress, Calm Cardiovascular: Yes: Regular Rate and Rhythm Respiratory: Yes: Regular, CTA Bilaterally Gastrointestinal: Yes: Normal Bowel Sounds, Soft Musculoskeletal: Yes: WNL Extremities: Yes: Erythema, Other (swelling,wound looks bad) Edema: RLE: 1+ Integumentary: Yes: Other (leg looks worse) Wound/Incision: Yes: Clean/Dry, Open to air, Other (wound looks bad) Neurological: Yes: Alert, Oriented Psychiatric: Yes: Alert, Oriented Labs: CBC, BMP 11/02/18 07:00 11/02/18 07:00 INR, PTT INR 1.32 (0.82-1.09) H 10/31/18 20:45 - ....Imaging MRI: Report Reviewed (awaited), Image Reviewed Assessment/Plan this non compliant patient who came to the hospital because of a nail penetration of the foot who is diabetic currently looks stable,no bleeding noted nail injury bleeding wound swelling of the foot cellulits of the foot leukocytosis plan await for mri report monitor leg closely monitor wound closely continue abx discussed in detail with the family and the patient on the nature and severity of the disease patient does not have any sensation on his toes
--- NOTE | 2018-11-02 12:43 | PN ---
Physical Exam: SUBJECTIVE: Patient seen and examined. Left foot is less painful. OBJECTIVE: Vital Signs Period Temp Pulse Resp BP Sys/Greene Pulse Ox Last 24 Hr 98.1 F-100.4 F 79-102 18-20 106-140/59-79 94-95 GENERAL: The patient is awake, alert, and fully oriented, in no acute distress. LUNGS: Breath sounds equal, clear to auscultation bilaterally, no wheezes, no crackles, no accessory muscle use. HEART: Regular rate and rhythm, S1, S2 ABDOMEN: Soft, nontender, nondistended LEFT LOWER EXTREMITY: entire foot is erythematous, warm, swollen, no improvement from yesterday; swelling extends to pre-tibial area; dried puncture wound on bottom of hallux NEUROLOGICAL: Cranial nerves II through XII grossly intact. Normal speech, gait not observed. Laboratory Results - last 24 hr 11/01/18 11/02/18 11/02/18 07:00 06:36 07:00 WBC 11.5 H RBC 4.34 Hgb 13.2 Hct 39.2 MCV 90.5 MCH 30.4 MCHC 33.6 RDW 12.3 Plt Count 152 MPV 8.5 Absolute Neuts (auto) 8.8 Neutrophils % 76.0 Lymphocytes % 14.3 Monocytes % 9.0 Eosinophils % 0.5 Basophils % 0.2 Sodium Potassium Chloride Carbon Dioxide Anion Gap BUN Creatinine Creat Clearance w eGFR POC Glucometer 73 Random Glucose Hemoglobin A1c % 11.7 H Calcium Magnesium Total Bilirubin AST ALT Alkaline Phosphatase Total Protein Albumin 11/02/18 11/02/18 07:00 11:54 WBC RBC Hgb Hct MCV MCH MCHC RDW Plt Count MPV Absolute Neuts (auto) Neutrophils % Lymphocytes % Monocytes % Eosinophils % Basophils % Sodium 133 L Potassium 3.9 Chloride 99 Carbon Dioxide 26 Anion Gap 8 BUN 17 Creatinine 0.9 Creat Clearance w eGFR > 60 POC Glucometer 174 Random Glucose 73 L Hemoglobin A1c % Calcium 8.2 L Magnesium 1.8 Total Bilirubin 0.9 AST 15 ALT 15 Alkaline Phosphatase 72 Total Protein 5.6 L Albumin 3.0 L Active Medications Generic Name Dose Route Start Last Admin Trade Name Freq PRN Reason Stop Dose Admin Acetaminophen 500 mg 10/31/18 22:57 11/01/18 11:55 Tylenol - PO 500 mg Q6H PRN Administration PAIN Aspirin 81 mg 11/01/18 10:00 11/02/18 09:34 Ecotrin - PO 81 mg DAILY SARAH Administration Atorvastatin Calcium 20 mg 11/01/18 10:00 11/02/18 09:34 Lipitor - PO 20 mg DAILY SARAH Administration Clindamycin HCl 300 mg 11/01/18 15:00 11/02/18 12:10 Cleocin - PO 300 mg Q6HPO SARAH Administration Heparin Sodium (Porcine) 5,000 unit 10/31/18 22:00 11/02/18 06:43 Heparin - SQ 5,000 unit TID SARAH Administration Meropenem 1 gm/ Dextrose 100 mls @ 200 mls/hr 11/01/18 14:00 11/02/18 06:46 IVPB 200 mls/hr Q8H SARAH Administration Insulin Aspart 1 vial 10/31/18 22:00 11/02/18 12:10 Novolog Vial Sliding Scale - SQ 2 unit ACHS SARAH Administration Protocol Insulin Detemir 60 units 10/31/18 22:00 11/02/18 08:37 Levemir Vial SQ 60 units BID@0700,2200 SARAH Administration Lisinopril 10 mg 11/01/18 10:00 11/02/18 09:34 Prinivil PO 10 mg DAILY SARAH Administration Melatonin 3 mg 11/01/18 22:00 11/01/18 21:13 Melatonin PO 3 mg HS SARAH Administration Nicotine 21 mg 11/01/18 10:00 11/02/18 09:34 Nicoderm Patch - TD 21 mg DAILY SARAH Administration ASSESSMENT/PLAN: 63 year-old male with a PMH significant for HTN, HLD, and IDDM admitted for left foot cellulitis. Sepsis secondary to left foot cellulitis --no improvement on exam, still quite swollen, red --Tm 100.4, WBC trending down --meropenem (day #2), clindamycin PO (day #2) --MRI negative for osteo, microscopic metallic debris seen possibly infiltrating v. skin surface --Echo done, no sign of vegetation --ID following Hyponatremia --improved IDDM --HgbA1C 11.7 --Levemir 60U BID --Novolog sliding scale coverage Hypertension --BP stable --continue lisinopril Hyperlipidemia --continue Lipitor FEN Fluids: PO intake adequate Electrolytes: replete as indicated Nutrition: diabetic DVT prophylaxis: subq heparin Dispo: continues to require inpatient care. Full code. Visit type - Emergency Visit Emergency Visit: Yes ED Registration Date: 10/31/18 Care time: The patient presented to the Emergency Department on the above date and was hospitalized for further evaluation of their emergent condition. - New Patient This patient is new to me today: No - Critical Care Critical Care patient: No
[2018-11-02] MEDS: ACETAMINOPHEN 500 MG TABLET (FP) PO PRN (14:30)
[2018-11-02] MEDS ORDERED: SODIUM CHLORIDE 500 ML IV STA (15:52)
[2018-11-02] MEDS ORDERED: SODIUM CHLORIDE 1,000 ML IV SCH (18:00)
[2018-11-02] MEDS: MELATONIN 1 MG TABLET PO SCH (21:21)
[2018-11-03] MEDS: CLINDAMYCIN HCL 150 MG CAPSULE (FP) PO SCH ×5 (00:21→23:18)
[2018-11-03] MEDS: HEPARIN NA (PORCINE) 5,000 UNITS/ML 1ML VIAL SQ SCH ×3 (06:21→21:43)
[2018-11-03] MEDS: MEROPENEM 1 GM in DEXTROSE 5%-WATER 100 ML IVPB SCH ×3 (06:22→21:53)
[2018-11-03] MEDS: INSULIN (LEVEMIR) 100 UNITS/ML UNITS SQ SCH ×2 (07:45→21:43)
[2018-11-03 08:03] LABS: BASO % 0.2 % (0-2.0); EOS % 0.8 % (0-4.5); HEMATOCRIT 38.7 % (35.4-49); HEMOGLOBIN 12.9 GM/dl (11.7-16.9); LYMPH % 14.8 % (8-40); MCH 29.9 pg (25.7-33.7); MCHC 33.5 g/dl (32.0-35.9); MEAN CELL VOLUME 89.4 fl (80-96); MEAN PLT VOLUME 8.4 fl (7.5-11.1); MONO % 8.6 % (3.8-10.2); NEUT % 75.6 % (42.8-82.8); PLATELET COUNT 157 K/MM3 (134-434); RBC 4.33 M/mm3 (4.00-5.60); RDW 12.6 % (11.9-15.9)
[2018-11-03 08:59] LABS: ALBUMIN 2.8 g/dl (3.4-5.0); ANION GAP 5 MMOL/L (8-16); BLOOD UREA NITROGEN 19 mg/dl (7-18); CALCIUM 7.9 mg/dl (8.5-10); CHLORIDE 100 mmol/L (98-107); CO2 24 mmol/L (21-32); GLUCOSE,RANDOM 142 mg/dl (74-106); MAGNESIUM 1.8 mg/dL (1.8-2.4); POTASSIUM 4.3 mmol/L (3.5-5.1); SODIUM 129 mmol/L (136-145); TOT PROT 5.4 g/dl (6.4-8.2)
[2018-11-03 09:00] LABS: ALK PHOS 73 U/L (45-117); BILIRUBIN,TOTAL 0.6 mg/dl (0.2-1); SGOT/AST 18 U/L (15-37); SGPT/ALT 18 U/L (13-61)
--- NOTE | 2018-11-03 09:33 | CONSULT ---
Consult - text type - Consultation Consultation Note: PODIATRY CONSULT Patient is a 63 y/o male who presented roughly 3 days ago secodary to stepping on a tack through his shoe. States that he did not feel it until later when seeing bleeding in his shoes. States his blood sugar is controlled in hospital now but "out of control" at home. Recent a1c shows 11.7% States that he has been here for multiple days, had xrays,mris, and CT done which revealed no retained foreign body and no underlying abscess. Patient appears very agitated and ready to leave; appears non compliant. O: VAsc: DP/PT 2/4, Temp gradient increased, cap fill time wnl Derm: Plantar aspect of left hallux with dry scab overlying previous punction site, no drainage, no purulence, no underlying fluctuance noted, erythema around hallux ascended into dorsal midfoot; decreased from the leg per patient, Neuro: Epicritic sensation is grossly decreased to all digits b/l A: Puncture wound Uncontrolled Diabetes Cellulitis P: Labs reviewed; WBC now 10, has been trending down CT/Xray/MRI reviewed; worried about fb on MRI and does not appear on the CT scan so likely not a retained piece of metal in the hallux Per patient erythema is decreased today and feeling much better Appears to have resolving cellulitis I recc to keep allevyn pad covering the plantar puncture wound and keep cleansed with NSS. Will need to closely follow erythema and if any abscess forms but at this time appears stable and slowly resolving Discussed care of db with patient at home; non compliance is a large factor for this patient Discussed infection into the bone as it can easily happen; he understands Wll continue to follow.
[2018-11-03] MEDS: ATORVASTATIN CA 20 MG TABLET (FP) PO SCH (10:20)
[2018-11-03] MEDS: ASPIRIN COATED 81 MG TABLET.EC PO SCH (10:20)
[2018-11-03] MEDS: LISINOPRIL 10 MG TABLET (FP) PO SCH (10:21)
[2018-11-03] MEDS: NICOTINE 21 MG/24 HOURS TOPICAL PATCH TD SCH (10:21)
[2018-11-03] MEDS: INSULIN SLIDING SCALE (NOVOLOG) 1 VIAL SQ SCH ×3 (11:15→21:43)
--- NOTE | 2018-11-03 11:59 | PN ---
Progress Note, Physician History of Present Illness: stable no issues leg looks better cellultis improved podiatry note noted - Current Medication List Current Medications: Active Medications Acetaminophen (Tylenol -) 500 mg PO Q6H PRN PRN Reason: PAIN Last Admin: 11/02/18 14:30 Dose: 500 mg Aspirin (Ecotrin -) 81 mg PO DAILY [facility] Last Admin: 11/03/18 10:20 Dose: 81 mg Atorvastatin Calcium (Lipitor -) 20 mg PO DAILY [facility] Last Admin: 11/03/18 10:20 Dose: 20 mg Clindamycin HCl (Cleocin -) 300 mg PO Q6HPO [facility] Last Admin: 11/03/18 06:21 Dose: 300 mg Heparin Sodium (Porcine) (Heparin -) 5,000 unit SQ TID [facility] Last Admin: 11/03/18 06:21 Dose: 5,000 unit Meropenem 1 gm/ Dextrose 100 mls @ 200 mls/hr IVPB Q8H [facility] Last Admin: 11/03/18 06:22 Dose: 200 mls/hr Insulin Aspart (Novolog Vial Sliding Scale -) 1 vial SQ [facility]; Protocol Last Admin: 11/02/18 17:34 Dose: Not Given Insulin Detemir (Levemir Vial) 60 units SQ BID@0700,2200 [facility] Last Admin: 11/03/18 07:45 Dose: 60 units Lisinopril (Prinivil) 10 mg PO DAILY [facility] Last Admin: 11/03/18 10:21 Dose: 10 mg Melatonin (Melatonin) 3 mg PO HS [facility] Last Admin: 11/02/18 21:21 Dose: 3 mg Nicotine (Nicoderm Patch -) 21 mg TD DAILY [facility] Last Admin: 11/03/18 10:21 Dose: 21 mg - Objective Vital Signs: Vital Signs Temperature 97.3 F L 11/03/18 04:00 Pulse Rate 86 11/03/18 04:00 Respiratory Rate 19 11/03/18 09:00 Blood Pressure 113/53 L 11/03/18 04:00 O2 Sat by Pulse Oximetry (%) 96 11/03/18 09:00 Constitutional: Yes: No Distress, Calm Cardiovascular: Yes: Regular Rate and Rhythm Respiratory: Yes: Regular, CTA Bilaterally Gastrointestinal: Yes: Normal Bowel Sounds, Soft Musculoskeletal: Yes: WNL Extremities: Yes: Erythema (improving), Other Wound/Incision: Yes: Clean/Dry, Open to air Neurological: Yes: Alert, Oriented Psychiatric: Yes: Alert, Oriented Labs: CBC, BMP 11/03/18 07:00 11/03/18 07:00 INR, PTT INR 1.32 (0.82-1.09) H 10/31/18 20:45 - ....Imaging MRI: Report Reviewed, Image Reviewed Assessment/Plan this non compliant patient who came to the hospital because of a nail penetration of the foot who is diabetic currently looks stable,no bleeding noted nail injury bleeding wound swelling of the foot cellulits of the foot leukocytosis plan patient can be changed to oral abx tomorrow if the leg looks better i am worried about the toe i have explained to the patient that if any changes occur in the toe needs to come to hospital immediately patient wants to go home protection of the leg rest as per the team
--- NOTE | 2018-11-03 13:06 | PN ---
Physical Exam: SUBJECTIVE: Patient seen and examined sitting on bed. OBJECTIVE: Vital Signs Period Temp Pulse Resp BP Sys/Greene Pulse Ox Last 24 Hr 97.3 F-100.0 F 86-124 18-20 113-135/53-92 95-96 GENERAL: The patient is awake, alert, and fully oriented, in no acute distress. LUNGS: Breath sounds equal, clear to auscultation bilaterally, no wheezes, no crackles, no accessory muscle use. HEART: Regular rate and rhythm, S1, S2 ABDOMEN: Soft, nontender, nondistended LEFT LOWER EXTREMITY: erythema resolving, still significant swelling of foot; wound to bottom of hallux ~0.5cm diameter, no active bleeding, no exudate Laboratory Results - last 24 hr 11/01/18 11/01/18 11/02/18 17:10 21:03 16:39 WBC RBC Hgb Hct MCV MCH MCHC RDW Plt Count MPV Absolute Neuts (auto) Neutrophils % Lymphocytes % Monocytes % Eosinophils % Basophils % Sodium Potassium Chloride Carbon Dioxide Anion Gap BUN Creatinine Creat Clearance w eGFR POC Glucometer 276 285 130 Random Glucose Lactic Acid Calcium Magnesium Total Bilirubin AST ALT Alkaline Phosphatase Total Protein Albumin 11/02/18 11/03/18 11/03/18 21:24 06:01 07:00 WBC 10.0 RBC 4.33 Hgb 12.9 Hct 38.7 MCV 89.4 MCH 29.9 MCHC 33.5 RDW 12.6 Plt Count 157 MPV 8.4 Absolute Neuts (auto) 7.5 Neutrophils % 75.6 Lymphocytes % 14.8 Monocytes % 8.6 Eosinophils % 0.8 Basophils % 0.2 Sodium Potassium Chloride Carbon Dioxide Anion Gap BUN Creatinine Creat Clearance w eGFR POC Glucometer 144 137 Random Glucose Lactic Acid Calcium Magnesium Total Bilirubin AST ALT Alkaline Phosphatase Total Protein Albumin 11/03/18 11/03/18 11/03/18 07:00 07:00 11:30 WBC RBC Hgb Hct MCV MCH MCHC RDW Plt Count MPV Absolute Neuts (auto) Neutrophils % Lymphocytes % Monocytes % Eosinophils % Basophils % Sodium 129 L Potassium 4.3 Chloride 100 Carbon Dioxide 24 Anion Gap 5 L BUN 19 H Creatinine 1.0 Creat Clearance w eGFR > 60 POC Glucometer 198 Random Glucose 142 H Lactic Acid 0.7 Calcium 7.9 L Magnesium 1.8 Total Bilirubin 0.6 AST 18 ALT 18 Alkaline Phosphatase 73 Total Protein 5.4 L Albumin 2.8 L Active Medications Generic Name Dose Route Start Last Admin Trade Name Freq PRN Reason Stop Dose Admin Acetaminophen 500 mg 10/31/18 22:57 11/02/18 14:30 Tylenol - PO 500 mg Q6H PRN Administration PAIN Aspirin 81 mg 11/01/18 10:00 11/03/18 10:20 Ecotrin - PO 81 mg DAILY SARAH Administration Atorvastatin Calcium 20 mg 11/01/18 10:00 11/03/18 10:20 Lipitor - PO 20 mg DAILY SARAH Administration Clindamycin HCl 300 mg 11/01/18 15:00 11/03/18 06:21 Cleocin - PO 300 mg Q6HPO SARAH Administration Heparin Sodium (Porcine) 5,000 unit 10/31/18 22:00 11/03/18 06:21 Heparin - SQ 5,000 unit TID SARAH Administration Meropenem 1 gm/ Dextrose 100 mls @ 200 mls/hr 11/01/18 14:00 11/03/18 06:22 IVPB 200 mls/hr Q8H SARAH Administration Insulin Aspart 1 vial 10/31/18 22:00 11/02/18 17:34 Novolog Vial Sliding Scale - SQ Not Given ACHS [facility] Protocol Insulin Detemir 60 units 10/31/18 22:00 11/03/18 07:45 Levemir Vial SQ 60 units BID@0700,2200 SARAH Administration Lisinopril 10 mg 11/01/18 10:00 11/03/18 10:21 Prinivil PO 10 mg DAILY SARAH Administration Melatonin 3 mg 11/01/18 22:00 11/02/18 21:21 Melatonin PO 3 mg HS SARAH Administration Nicotine 21 mg 11/01/18 10:00 11/03/18 10:21 Nicoderm Patch - TD 21 mg DAILY SARAH Administration ASSESSMENT/PLAN: 63 year-old male with a PMH significant for HTN, HLD, and IDDM admitted for left foot cellulitis. Sepsis secondary to left foot cellulitis --erythema and swelling resolving; has no sensation to either foot due to diabetic neuropathy --afebrile, leukocytosis resoslved --meropenem (day #3), clindamycin PO (day #3) --MRI negative for osteo, microscopic metallic debris seen possibly infiltrating v. skin surface --Echo done, no sign of vegetation --ID following Hyponatremia --corrected 130 IDDM --HgbA1C 11.7 --Levemir 60U BID --Novolog sliding scale coverage Hypertension --BP stable --continue lisinopril Hyperlipidemia --continue Lipitor FEN Fluids: PO intake adequate Electrolytes: replete as indicated Nutrition: diabetic DVT prophylaxis: subq heparin Dispo: continues to require inpatient care. Plan is to discharge patient tomorrow after afternoon dose of meropenem on 10 days of PO antibiotics. Dr. Mcclure/partner will round tomorrow and advise re: abx selection. Full code. Visit type - Emergency Visit Emergency Visit: Yes ED Registration Date: 10/31/18 Care time: The patient presented to the Emergency Department on the above date and was hospitalized for further evaluation of their emergent condition. - New Patient This patient is new to me today: No - Critical Care Critical Care patient: No
[2018-11-03] MEDS ORDERED: MEROPENEM 1 GM VIAL (RESTRICTED TO ID) IVPB ONE ×2 (13:57→21:19)
[2018-11-03] MEDS ORDERED: DEXTROSE 5%-WATER 100 ML IVPB ONE ×2 (13:57→21:19)
[2018-11-03] MEDS ORDERED: INSULIN (NOVOLOG) ASPART 100 UNITS/ML 10ML VIAL ONE (16:57)
[2018-11-03 22:26] VITALS: PULSE 63
[2018-11-03] MEDS: MELATONIN 1 MG TABLET PO SCH (23:18)
[2018-11-04 04:22] VITALS: BP 122/60; TEMP 97.6
[2018-11-04] MEDS ORDERED: DEXTROSE 5%-WATER 100 ML IVPB ONE ×2 (06:04→12:10)
[2018-11-04] MEDS ORDERED: MEROPENEM 1 GM VIAL (RESTRICTED TO ID) IVPB ONE ×2 (06:04→12:10)
[2018-11-04] MEDS: HEPARIN NA (PORCINE) 5,000 UNITS/ML 1ML VIAL SQ SCH (06:11)
[2018-11-04] MEDS: CLINDAMYCIN HCL 150 MG CAPSULE (FP) PO SCH ×2 (06:11→12:15)
[2018-11-04] MEDS: MEROPENEM 1 GM in DEXTROSE 5%-WATER 100 ML IVPB SCH (06:11)
[2018-11-04] MEDS: INSULIN SLIDING SCALE (NOVOLOG) 1 VIAL SQ SCH (06:20)
[2018-11-04] MEDS: INSULIN (LEVEMIR) 100 UNITS/ML UNITS SQ SCH (08:00)
[2018-11-04] MEDS: NICOTINE 21 MG/24 HOURS TOPICAL PATCH TD SCH (09:55)
[2018-11-04] MEDS: LISINOPRIL 10 MG TABLET (FP) PO SCH (09:55)
[2018-11-04] MEDS: ATORVASTATIN CA 20 MG TABLET (FP) PO SCH (09:55)
[2018-11-04] MEDS: ASPIRIN COATED 81 MG TABLET.EC PO SCH (09:55)
--- NOTE | 2018-11-04 10:27 | PN ---
Progress Note, Physician History of Present Illness: Pt seen and examined. States he feels much better. He denies pain in his foot. Tolerating antibiotics. - Current Medication List Current Medications: Active Medications Acetaminophen (Tylenol -) 500 mg PO Q6H PRN PRN Reason: PAIN Last Admin: 11/02/18 14:30 Dose: 500 mg Aspirin (Ecotrin -) 81 mg PO DAILY [facility] Last Admin: 11/04/18 09:55 Dose: 81 mg Atorvastatin Calcium (Lipitor -) 20 mg PO DAILY [facility] Last Admin: 11/04/18 09:55 Dose: 20 mg Clindamycin HCl (Cleocin -) 300 mg PO Q6HPO [facility] Last Admin: 11/04/18 06:11 Dose: 300 mg Heparin Sodium (Porcine) (Heparin -) 5,000 unit SQ TID [facility] Last Admin: 11/04/18 06:11 Dose: Not Given Meropenem 1 gm/ Dextrose 100 mls @ 200 mls/hr IVPB Q8H [facility] Last Admin: 11/04/18 06:11 Dose: 200 mls/hr Insulin Aspart (Novolog Vial Sliding Scale -) 1 vial SQ [facility]; Protocol Last Admin: 11/04/18 06:20 Dose: Not Given Insulin Detemir (Levemir Vial) 60 units SQ BID@0700,2200 [facility] Last Admin: 11/04/18 08:00 Dose: 60 units Lisinopril (Prinivil) 10 mg PO DAILY [facility] Last Admin: 11/04/18 09:55 Dose: 10 mg Melatonin (Melatonin) 3 mg PO HS [facility] Last Admin: 11/03/18 23:18 Dose: 3 mg Nicotine (Nicoderm Patch -) 21 mg TD DAILY [facility] Last Admin: 11/04/18 09:55 Dose: 21 mg - Objective Vital Signs: Vital Signs Temperature 97.6 F 11/04/18 09:13 Pulse Rate 63 11/04/18 09:13 Respiratory Rate 20 11/04/18 09:13 Blood Pressure 122/60 11/04/18 09:13 O2 Sat by Pulse Oximetry (%) 95 11/04/18 04:20 Constitutional: Yes: No Distress, Calm Cardiovascular: Yes: Regular Rate and Rhythm Respiratory: Yes: Regular Gastrointestinal: Yes: Normal Bowel Sounds, Soft Wound/Incision: Yes: Other (Lt 1st toe ulcer dry, no drainage/fluctuance LLE mild edema, foot erythema resolving, no warmth/tenderness) Neurological: Yes: Alert, Oriented Labs: CBC, BMP 11/03/18 07:00 11/03/18 07:00 INR, PTT INR 1.32 (0.82-1.09) H 10/31/18 20:45 Assessment/Plan Lt 1st toe infected wound Lt foot cellulitis Uncontrolled DM -- fever, leukocytosis resolved -- clinically improving' -- needs tight glycemic control -- f/u with Podiatry Pt wishes to go home, feeling better May switch to Levaquin 750 mg po daily and Clindamycin 300 mg po Q6h x 10 days each Pt instructed to seek medical attention if symptoms worsen or develops abd pain/ diarrhea/fever/rash
--- NOTE | 2018-11-04 10:59 | DS ---
Physical Exam: SUBJECTIVE: Patient seen and examined OBJECTIVE: Vital Signs Period Temp Pulse Resp BP Sys/Greene Pulse Ox Last 24 Hr 97.6 F-99.9 F 63-86 18-20 101-135/51-85 95-97 PHYSICAL EXAM GENERAL: The patient is awake, alert, and fully oriented, in no acute distress. HEAD: Normal with no signs of trauma. EYES: PERRL, extraocular movements intact, sclera anicteric, conjunctiva clear. ENT: Ears normal, nares patent, oropharynx clear without exudates, moist mucous membranes. NECK: Trachea midline, full range of motion, supple. LUNGS: Breath sounds equal, clear to auscultation bilaterally, no wheezes, no crackles, no accessory muscle use. HEART: Regular rate and rhythm, S1, S2 without murmur, rub or gallop. ABDOMEN: Soft, nontender, nondistended, normoactive bowel sounds, no guarding, no rebound, no hepatosplenomegaly, no masses. EXTREMITIES: 2+ pulses, warm, well-perfused, no edema. NEUROLOGICAL: Cranial nerves II through XII grossly intact. Normal speech, gait not observed. PSYCH: Normal mood, normal affect. SKIN: Warm, dry, normal turgor, no rashes or lesions noted. LABS Laboratory Results - last 24 hr 11/03/18 11/03/18 11/03/18 11:30 16:55 21:28 POC Glucometer 198 173 125 11/04/18 06:15 POC Glucometer 72 HOSPITAL COURSE: Date of Admission:10/31/18 Date of Discharge: 11/04/18 63 year-old male with a PMH significant for HTN, HLD, and IDDM admitted for left foot cellulitis. Sepsis secondary to left foot cellulitis-resolved --switched to po abt, clindamycin and Levaquin as per ID for 10 days --MRI negative for osteo, microscopic metallic debris seen possibly infiltrating v. skin surface --Echo done, no sign of vegetation --follow up with PCP, ID, Podiatry Hyponatremia --Na+129 IDDM --HgbA1C 11.7 --Levemir 60U BID --Novolog sliding scale coverage Hypertension --BP stable --continue lisinopril Hyperlipidemia --continue Lipitor Minutes to complete discharge: 30 Discharge Summary Reason For Visit: CELLULITIS OF FOOT Current Active Problems Cellulitis of foot (Acute) Hyperglycemia (Acute) - Instructions Diet, Activity, Other Instructions: follow up with Podiatry Referrals: Ozzy Mcclure MD [Staff Physician] - 2 Weeks Abelardo Gaston MD [Staff Physician] - 11/07/18 Disposition: HOME - Home Medications Comprehensive Discharge Medication List: Ambulatory Orders Aspirin [Adult Aspirin Regimen] 81 mg PO DAILY 08/23/18 Insulin Glargine,Hum.rec.anlog [Lantus] 60 unit SQ BID 08/23/18 Lisinopril [Prinivil] 10 mg PO DAILY 08/23/18 Simvastatin [Zocor -] 40 mg PO DAILY 08/23/18 metFORMIN HCL [Metformin ER Gastric] 1,000 mg PO BID 08/23/18 Clindamycin [Cleocin -] 300 mg PO Q6HPO 10 Days #40 capsule 11/04/18 Levofloxacin [Levaquin] 750 mg PO DAILY 10 Days #10 tablet 11/04/18 Nicotine Patch [Nicoderm Patch -] 21 mg TD DAILY 30 Days #30 patch 11/04/18 This patient is new to me today: Yes Date on this admission: 11/04/18 Emergency Visit: Yes ED Registration Date: 10/31/18 Care time: The patient presented to the Emergency Department on the above date and was hospitalized for further evaluation of their emergent condition. Critical Care patient: No - Discharge Referral Referred to [facility] No
[2018-11-04] MEDS ORDERED: PT OWN MED DRAWER 7, Y5N ONE (12:09)
--- NOTE | 2018-11-05 10:39 | HOSP ---
Physical Examination Vital Signs: Vital Signs Temperature 97.6 F 11/04/18 09:13 Pulse Rate 63 11/04/18 09:13 Respiratory Rate 20 11/04/18 09:13 Blood Pressure 122/60 11/04/18 09:13 O2 Sat by Pulse Oximetry (%) 95 11/04/18 04:20 Labs: CBC, BMP 11/03/18 07:00 11/03/18 07:00 Hospitalist Encounter Assessment: Received call from ID, Dr. Scanlon, received call from [facility], 09/20 blood cx + , gram bacilli. JOHNNIE Vences called patient, pt will come to [facility]'s ED and have blood cx drawn pt will follow up with ID as outpt.
== END 2018-11-04 13:45 | disposition home or self-care (01) | DRG 603 ==
LOC: FER 19:32 → FM/S 21:40 → OBSVTOIN 21:47 → FM/S 21:59 → UNDOADMOB 21:59
PROVIDERS: ADMIT Internal Medicine; ATTEND Nurse Practitioner Family
DX: L03.116 Cellulitis of left lower limb (principal); E87.1 Hypo-osmolality and hyponatremia; E11.65 Type 2 diabetes mellitus with hyperglycemia; I10 Essential (primary) hypertension; E78.5 Hyperlipidemia, unspecified; D72.829 Elevated white blood cell count, unspecified; F17.210 Nicotine dependence, cigarettes, uncomplicated; Z79.4 Long term (current) use of insulin
CPT/HCPCS: 36415; 71045-TC-FY; 73630-TC-LT; 73700-TC-RT; 73719-LT; 80053; 81003; 81015; 82550; 82553; 82962; 83036; 83605; 83735; 84484; 85025; 85027; 85610; 85651; 87040; 87076; 90715; 93005; 93306-TC; 93970-TC; 99282-25; C1887; G0378; J1644; J7030

== ENCOUNTER 2021-08-31 07:58 | Emergency (ER) | payer OTHER ==
[2021-08-31 08:06] VITALS: BP 188/99; PULSE 66; TEMP 98.3; BMI 68.1
== END 2021-08-31 08:44 | disposition home or self-care (01) ==
LOC: FER 07:58
DX: M70.32 Other bursitis of elbow, left elbow (principal)
CPT/HCPCS: 99282-25